=== PATIENT | male | born 1995 | race Caucasian/White ===

== ENCOUNTER 2024-04-13 09:31 | Emergency (ER) | payer SELFPAY ==
[~2024-04-13] VITALS: Ht 172.7 cm; Wt 81.4 kg
[2024-04-13] MEDS ORDERED: SERTRALINE50 MG PO (09:42)
[2024-04-13] MEDS ORDERED: Albuterol/Ipratropium 3 MG-0.5 MG/3 ML Neb Soln IH ONE (10:00)
[2024-04-13 10:14] VITALS: BP 128/82
[2024-04-13] MEDS ORDERED: ZOFRAN ODT4 MG PO (10:22)
[2024-04-13] MEDS ORDERED: PROAIR HFA0.09 MG/AC IH (10:22)
== END 2024-04-13 10:43 | disposition home or self-care (01) ==
LOC: ED 09:31
DX: B34.9 Viral infection, unspecified (principal); R05.9 Cough, unspecified; R11.0 Nausea; R51.9 Headache, unspecified; R00.0 Tachycardia, unspecified; Z87.09 Personal history of other diseases of the respiratory system